=== PATIENT | male | born 1965 | race Caucasian/White ===

== ENCOUNTER 2022-02-24 10:36 | Outpatient (CLI) | payer OTHER ==
[2022-02-24 11:55] LABS: Mean Corpuscular HGB CONC 32.9 g/dL (32.0-36.0); Mean Corpuscular Hemoglobin 29.2 pg (27.0-33.0); Mean Corpuscular Volume 88.6 fl (81.2-95.1); Mean Platelet Volume 10.2 fl (7.4-10.4); Platelet Count 316 10x3/uL (150-450); RBC Distribution Width 14.8 % (11.5-14.5); Red Blood Cell (RBC) Count 3.77 10x6/uL (4.32-5.72); White Blood Cell (WBC) Count 8.4 10x3/uL (3.5-10.5)
[2022-02-24 11:58] LABS: INR-International Normal Ratio 0.9; PTT 22.8 sec (22.0-33.0); Prothrombin Time 9.7 sec (9.5-12.1)
== END 2022-02-24 10:37 | disposition home or self-care (01) ==
LOC: LABBT 10:36
PROVIDERS: ATTEND Neurological Surgery
DX: Z01.812 Encounter for preprocedural laboratory examination (principal); M48.02 Spinal stenosis, cervical region
CPT/HCPCS: 85027; 85610; 85730

== ENCOUNTER 2022-02-27 10:12 | Inpatient (IN) | payer BC ==
[2022-02-26 11:37] VITALS: BMI 29.4
[2022-02-27] MEDS ORDERED: Bacitracin Zinc Ointment 30 gm TUBE ONE (11:04)
[2022-02-27] MEDS ORDERED: Neomycin-Polymyxin 1 ML AMP ONE ×2 (11:04→14:55)
[2022-02-27] MEDS ORDERED: Thrombin 5000 UNITS/5 ML VIAL ONE (11:04)
[2022-02-27] MEDS ORDERED: Bupivacaine HCl 0.5%/Epinephrine 1:200,000/PF 30 ml Vial ONE (11:04)
[2022-02-27] MEDS ORDERED: Sodium Chloride 0.9% 100 ML ONE (11:47)
[2022-02-27] MEDS ORDERED: CEFAZOLIN 2 GM VIAL ONE (11:47)
[2022-02-27] MEDS ORDERED: Fentanyl 250 MCG/5 ML VIAL ONE (11:47)
[2022-02-27] MEDS ORDERED: Rocuronium Bromide 10 MG/ML (10ML VIAL) ONE (12:26)
[2022-02-27] MEDS ORDERED: Lidocaine 1% PF 5 ML VIAL ONE (12:26)
[2022-02-27] MEDS ORDERED: Ondansetron PF 4 MG/2 ML Vial ONE (12:26)
[2022-02-27] MEDS ORDERED: Dexamethasone 20 MG/5 ML VIAL ONE (12:26)
[2022-02-27] MEDS ORDERED: PROPOFOL 200 MG/20 ML VIAL ONE (12:26)
[2022-02-27] MEDS ORDERED: PHENYLEPHRINE-NS 100 MCG/ML 10 ML SYRINGE ONE (12:26)
[2022-02-27] MEDS ORDERED: Phenylephrine 10 MG/ML VIAL ONE (14:16)
[2022-02-27] MEDS ORDERED: Vancomycin 1 GM VIAL ONE (14:37)
[2022-02-27] MEDS ORDERED: Rocuronium Bromide 50 MG/5 ML VIAL ONE (14:47)
[2022-02-27] MEDS ORDERED: SUGAMMADEX SODIUM 200 MG/2 ML VIAL ONE (15:35)
[2022-02-27] MEDS ORDERED: Bisacodyl 10 MG SUPP PR PRN (15:42)
[2022-02-27] MEDS ORDERED: diphenhydrAMINE 50 MG/ML VIAL IVP PRN (15:42)
[2022-02-27] MEDS ORDERED: Milk Of Magnesia 30 ML UDCUP PO PRN (15:42)
[2022-02-27] MEDS ORDERED: Ondansetron PF 4 MG/2 ML Vial IVP PRN (15:42)
[2022-02-27] MEDS ORDERED: HYDROcodone/Acetaminophen 7.5/325 mg Tablet PO PRN (15:42)
[2022-02-27] MEDS ORDERED: Acetaminophen 325 MG TAB PO PRN (15:42)
[2022-02-27] MEDS ORDERED: Promethazine HCl 25 MG/ML VIAL IM PRN (15:42)
[2022-02-27] MEDS ORDERED: Mag-Al 1200 mg/1200 mg/30 ML UDCUP PO PRN (15:42)
[2022-02-27] MEDS ORDERED: Fentanyl 100 MCG/2 ML VIAL ONE ×2 (16:36→17:25)
[2022-02-27] MEDS: Sodium Chloride 0.9% 1,000 ML IV SCH (18:20)
[2022-02-27] MEDS: Morphine 2 MG/ML VIAL SLOW IVP PRN (18:29)
[2022-02-27] MEDS: HYDROcodone/Acetaminophen 10/325 mg Tablet PO PRN (21:09)
[2022-02-27] MEDS: CEFAZOLIN 2 GM in Sodium Chloride 0.9% 100 ML IVPB SCH (21:11)
[2022-02-27] MEDS: metFORMIN 500 MG TAB PO SCH (21:11)
[2022-02-28] MEDS: HYDROcodone/Acetaminophen 10/325 mg Tablet PO PRN ×5 (01:25→20:27)
[2022-02-28] MEDS: CEFAZOLIN 2 GM in Sodium Chloride 0.9% 100 ML IVPB SCH (04:18)
[2022-02-28] MEDS: Sodium Chloride 0.9% 1,000 ML IV SCH ×2 (04:35→19:29)
[2022-02-28] MEDS: Tamsulosin HCl 0.4 MG CAP PO SCH (05:24)
[2022-02-28] MEDS ORDERED: hydrALAZINE 20 MG/ML VIAL SLOW IVP PRN (06:01)
[2022-02-28] MEDS: Morphine 2 MG/ML VIAL SLOW IVP PRN (06:49)
[2022-02-28 07:53] LABS: #Lymphocytes 1.3 thou/uL (1.20-3.40); %Basophils 0.1 % (0.0-1.0); %Eosinophils 0.1 % (0.0-10.0); %Lymphocytes 10.9 % (21.0-51.0); %Monocytes 7.9 % (0.0-10.0); %Neutrophils 81.1 % (42.0-75.0); Mean Corpuscular HGB CONC 32.6 g/dL (32.0-36.0); Mean Corpuscular Volume 92.1 fl (78.0-98.0); Platelet Count 254 10x3/uL (130-400); Red Blood Cell (RBC) Count 3.32 mill/uL (4.70-6.10); White Blood Cell (WBC) Count 12.4 10x3/uL (4.8-10.8)
[2022-02-28 08:14] LABS: Anion Gap 14 mmol/L (10-20); BUN (Urea Nitrogen) 23 mg/dL (8.4-25.7); Calc. Creatinine Clearance 74 mL/min (70-130); Calcium 9.5 mg/dL (7.8-10.44); Carbon Dioxide 22 mmol/L (22-29); Chloride 109 mmol/L (98-107); Estimated GFR 57; Glucose 121 mg/dL (70-105); Potassium 4.3 mmol/L (3.5-5.1); Sodium 141 mmol/L (136-145)
[2022-02-28] MEDS: metFORMIN 500 MG TAB PO SCH ×2 (09:09→23:29)
[2022-02-28] MEDS: Allopurinol 300 MG TAB PO SCH (09:09)
[2022-02-28] MEDS: predniSONE 20 MG TAB PO SCH (09:09)
[2022-02-28] MEDS: tiZANidine HCl 4 MG TAB PO PRN ×2 (15:28→23:26)
[2022-02-28] MEDS: Acetaminophen/Codeine 30-300mg Tablet PO PRN (18:44)
[2022-03-01] MEDS: HYDROcodone/Acetaminophen 10/325 mg Tablet PO PRN ×4 (03:10→20:35)
[2022-03-01] MEDS: Tamsulosin HCl 0.4 MG CAP PO SCH (06:09)
[2022-03-01] MEDS: Acetaminophen/Codeine 30-300mg Tablet PO PRN ×2 (06:09→11:50)
[2022-03-01] MEDS: Sodium Chloride 0.9% 1,000 ML IV SCH ×2 (06:50→22:47)
[2022-03-01] MEDS: predniSONE 20 MG TAB PO SCH (08:42)
[2022-03-01] MEDS: tiZANidine HCl 4 MG TAB PO PRN ×2 (08:43→15:52)
[2022-03-01] MEDS: metFORMIN 500 MG TAB PO SCH ×2 (08:43→20:31)
[2022-03-01] MEDS: Allopurinol 300 MG TAB PO SCH (08:54)
[2022-03-01] MEDS ORDERED: Ketorolac Tromethamine 30 MG/ML VIAL IVP SCH ×2 (10:30→16:00)
[2022-03-01] MEDS ORDERED: Dexamethasone 4 mg/ml Vial SLOW IVP SCH (10:30)
[2022-03-01] MEDS: Dexamethasone 4 mg/ml Vial SLOW IVP SCH (20:31)
[2022-03-02] MEDS: Acetaminophen/Codeine 30-300mg Tablet PO PRN ×2 (03:25→11:00)
[2022-03-02] MEDS: tiZANidine HCl 4 MG TAB PO PRN (03:26)
[2022-03-02] MEDS: Tamsulosin HCl 0.4 MG CAP PO SCH (05:24)
[2022-03-02] MEDS: predniSONE 20 MG TAB PO SCH (08:11)
[2022-03-02] MEDS: metFORMIN 500 MG TAB PO SCH (08:11)
[2022-03-02] MEDS: Allopurinol 300 MG TAB PO SCH (08:12)
[2022-03-02] MEDS: HYDROcodone/Acetaminophen 10/325 mg Tablet PO PRN (08:12)
[2022-03-02] MEDS: Dexamethasone 4 mg/ml Vial SLOW IVP SCH (08:12)
[2022-03-02 09:09] VITALS: BP 116/76; TEMP 97.7
[2022-03-02] MEDS: Sodium Chloride 0.9% 1,000 ML IV SCH (11:20)
== END 2022-03-02 12:43 | disposition home or self-care (01) | DRG 519 ==
LOC: SDC 10:12 → SURG A 15:42 → OBSVTOIN 03-02 12:15
PROVIDERS: ADMIT Neurological Surgery; ATTEND Neurological Surgery
PROC: 00NW0ZZ Release Cervical Spinal Cord, Open Approach (ICD-10-PCS; principal; 2022-02-27)
DX: M48.02 Spinal stenosis, cervical region (principal); G95.89 Other specified diseases of spinal cord; Z20.822 Contact with and (suspected) exposure to COVID-19; D64.9 Anemia, unspecified; K21.9 Gastro-esophageal reflux disease without esophagitis; G89.29 Other chronic pain; M19.90 Unspecified osteoarthritis, unspecified site; M48.062 Spinal stenosis, lumbar region with neurogenic claudication; G43.909 Migraine, unspecified, not intractable, without status migrainosus; F17.220 Nicotine dependence, chewing tobacco, uncomplicated; Z82.49 Family history of ischemic heart disease and other diseases of the circulatory system; Z83.3 Family history of diabetes mellitus; Z79.899 Other long term (current) drug therapy
CPT/HCPCS: 36415; 36416; 80048; 85025; 96374; 96375; 96376; G0378; J1100; J2272; J2370; J2405; J2704; J3010; J3370; J3490; J7512; U0003; U0005

== ENCOUNTER 2022-05-05 12:20 | Outpatient (CLI) | payer BC ==
[2022-05-05 14:06] LABS: Hemoglobin 10.9 g/dL (13.5-17.5); Mean Corpuscular HGB CONC 31.1 g/dL (32.0-36.0); Mean Corpuscular Hemoglobin 28.2 pg (27.0-33.0); Mean Corpuscular Volume 90.7 fl (81.2-95.1); Platelet Count 343 10x3/uL (150-450); RBC Distribution Width 15.4 % (11.5-14.5); Red Blood Cell (RBC) Count 3.87 10x6/uL (4.32-5.72); White Blood Cell (WBC) Count 9.7 10x3/uL (3.5-10.5)
[2022-05-05 14:11] LABS: INR-International Normal Ratio 0.9; Prothrombin Time 9.8 sec (9.5-12.1)
[2022-05-05 14:14] LABS: Anion Gap 18 mmol/L (10-20); BUN (Urea Nitrogen) 23 mg/dL (8.4-25.7); Calc. Creatinine Clearance 0 mL/min (70-130); Calcium 10.1 mg/dL (7.8-10.44); Carbon Dioxide 22 mmol/L (22-29); Chloride 107 mmol/L (98-107); Estimated GFR 48; Glucose 90 mg/dL (70-105); Potassium 3.9 mmol/L (3.5-5.1); Sodium 143 mmol/L (136-145)
== END 2022-05-05 12:21 | disposition home or self-care (01) ==
LOC: LABBT 12:20
PROVIDERS: ATTEND Neurological Surgery
DX: Z01.812 Encounter for preprocedural laboratory examination (principal); M48.061 Spinal stenosis, lumbar region without neurogenic claudication
CPT/HCPCS: 80048; 85027; 85610; 85730

== ENCOUNTER 2022-05-08 10:25 | Observation (INO) | payer BC ==
[2022-05-08] MEDS ORDERED: Vancomycin 1 GM VIAL ONE (10:58)
[2022-05-08] MEDS ORDERED: Bupivacaine HCl 0.5%/Epinephrine 1:200,000/PF 30 ml Vial ONE (10:58)
[2022-05-08] MEDS ORDERED: Neomycin-Polymyxin 1 ML AMP ONE (10:58)
[2022-05-08] MEDS ORDERED: Thrombin 5000 UNITS/5 ML VIAL ONE (10:58)
[2022-05-08] MEDS ORDERED: CEFAZOLIN 2 GM VIAL ONE (11:53)
[2022-05-08] MEDS ORDERED: Sodium Chloride 0.9% 100 ML ONE (11:53)
[2022-05-08] MEDS ORDERED: Midazolam HCl 2 mg/2 ml Vial ONE (12:07)
[2022-05-08] MEDS ORDERED: Lidocaine 1% MPF 2 ML VIAL ONE (12:46)
[2022-05-08] MEDS ORDERED: Phenylephrine 10 MG/ML VIAL ONE (13:00)
[2022-05-08] MEDS ORDERED: Lidocaine 1% PF 5 ML VIAL ONE (13:00)
[2022-05-08] MEDS ORDERED: Rocuronium Bromide 10 MG/ML (10ML VIAL) ONE (13:00)
[2022-05-08] MEDS ORDERED: Ondansetron PF 4 MG/2 ML Vial ONE (13:00)
[2022-05-08] MEDS ORDERED: PROPOFOL 200 MG/20 ML VIAL ONE (13:00)
[2022-05-08] MEDS ORDERED: Dexamethasone 20 MG/5 ML VIAL ONE (13:00)
[2022-05-08] MEDS ORDERED: Vecuronium 10 MG VIAL ONE (13:00)
[2022-05-08] MEDS ORDERED: MINERAL OIL/WHITE PETROLATUM 3.5 GM TUBE ONE (13:01)
[2022-05-08] MEDS ORDERED: Fentanyl 250 MCG/5 ML VIAL ONE (13:02)
[2022-05-08] MEDS ORDERED: HYDROmorphone 2 MG/ML VIAL ONE (17:22)
[2022-05-08] MEDS ORDERED: SUGAMMADEX SODIUM 200 MG/2 ML VIAL ONE (17:22)
[2022-05-08] MEDS ORDERED: Ondansetron PF 4 MG/2 ML Vial IVP PRN (18:02)
[2022-05-08] MEDS ORDERED: Morphine 2 MG/ML VIAL SLOW IVP PRN (18:02)
[2022-05-08] MEDS ORDERED: Acetaminophen 325 MG TAB PO PRN (18:02)
[2022-05-08] MEDS ORDERED: diphenhydrAMINE 50 MG/ML VIAL IVP PRN (18:02)
[2022-05-08] MEDS ORDERED: HYDROcodone/Acetaminophen 7.5/325 mg Tablet PO PRN (18:02)
[2022-05-08] MEDS ORDERED: Acetaminophen/Codeine 30-300mg Tablet PO PRN (18:02)
[2022-05-08] MEDS ORDERED: Dextrose 50% Abboject 50 ML SYRINGE SLOW IVP PRN (18:05)
[2022-05-08] MEDS ORDERED: HumaLOG 300 UNITS/3 ML VIAL SC PRN (18:05)
[2022-05-08] MEDS ORDERED: Dextrose 5% in Water 1,000 ML IV PRN (18:05)
[2022-05-08] MEDS ORDERED: Promethazine HCl 25 MG/ML VIAL IM PRN (18:44)
[2022-05-08] MEDS ORDERED: Ondansetron HCl/PF 4 MG/2 ML Vial IVP PRN (18:44)
[2022-05-08] MEDS ORDERED: HYDROmorphone 2 MG/ML VIAL SLOW IVP PRN (18:44)
[2022-05-08] MEDS: CEFAZOLIN 2 GM in Sodium Chloride 0.9% 100 ML IVPB SCH (22:00)
[2022-05-08] MEDS: Sodium Chloride 0.9% 1,000 ML IV SCH (22:00)
[2022-05-08 22:35] VITALS: BMI 29.4
[2022-05-09] MEDS: CEFAZOLIN 2 GM in Sodium Chloride 0.9% 100 ML IVPB SCH (03:44)
[2022-05-09] MEDS ORDERED: Tamsulosin HCl 0.4 MG CAP PO SCH (06:00)
[2022-05-09] MEDS ORDERED: Vancomycin 1 GM VIAL ONE (06:30)
[2022-05-09] MEDS ORDERED: Neomycin-Polymyxin 1 ML AMP ONE (06:30)
[2022-05-09] MEDS ORDERED: Bupivacaine HCl 0.5%/Epinephrine 1:200,000/PF 30 ml Vial ONE (06:30)
[2022-05-09] MEDS ORDERED: Thrombin 5000 UNITS/5 ML VIAL ONE (06:30)
[2022-05-09] MEDS: HYDROcodone/Acetaminophen 10/325 mg Tablet PO PRN ×3 (08:39→17:48)
[2022-05-09] MEDS: tiZANidine HCl 4 MG TAB PO PRN ×2 (08:39→17:50)
[2022-05-09] MEDS: Sodium Chloride 0.9% 1,000 ML IV SCH (08:41)
[2022-05-09] MEDS ORDERED: predniSONE 5 MG TAB PO SCH (09:00)
[2022-05-09] MEDS ORDERED: Allopurinol 300 MG TAB PO SCH (09:00)
[2022-05-09 20:09] VITALS: BP 152/87; TEMP 98
== END 2022-05-09 19:47 | disposition home or self-care (01) ==
LOC: SDC 10:25 → SURG B 19:45
PROVIDERS: ADMIT Neurological Surgery; ATTEND Neurological Surgery
PROC: 01NB0ZZ Release Lumbar Nerve, Open Approach (ICD-10-PCS; principal; 2022-05-08)
PROC: 01NR0ZZ Release Sacral Nerve, Open Approach (ICD-10-PCS; 2022-05-08)
DX: M48.062 Spinal stenosis, lumbar region with neurogenic claudication (principal); M48.07 Spinal stenosis, lumbosacral region; K21.9 Gastro-esophageal reflux disease without esophagitis; I10 Essential (primary) hypertension; E11.9 Type 2 diabetes mellitus without complications; G89.29 Other chronic pain; M19.90 Unspecified osteoarthritis, unspecified site; Z87.891 Personal history of nicotine dependence; Z79.52 Long term (current) use of systemic steroids; Z79.84 Long term (current) use of oral hypoglycemic drugs; Z79.899 Other long term (current) drug therapy
CPT/HCPCS: 93005; 93010; J1100; J1170; J1642; J2250; J2370; J2405; J2704; J3010; J3370; J3490; J7050; J7512